=== PATIENT | male | born 1955 | race Caucasian/White ===

== ENCOUNTER 2021-06-25 17:25 | Inpatient (IN) | payer OTHER ==
[~2021-06-25] VITALS: Ht 185.4 cm; Wt 108.4 kg
[2021-06-25 20:17] LABS: Basophils # (auto) 0 10 ^3/uL (0-0.2); Basophils % (auto) 0.3 % (0.0-2.0); Eosinophils # (auto) 0 10 ^3/uL (0-0.8); Eosinophils % (auto) 0.1 % (0.0-7.0); Hematocrit 41.9 % (41.0-53.0); Hemoglobin 14.2 g/dL (13.5-17.5); Lymphocytes # (auto) 0.9 10 ^3/uL (0.4-5.4); Lymphocytes % (auto) 6.8 % (10.0-50.0); Mean Corpuscular Hemoglobin 30.7 pg (28.0-32.0); Mean Corpuscular Hgb Conc. 33.8 g/dL (32.0-36.0); Mean Corpuscular Volume 90.6 fL (80.0-100.0); Monocytes # (auto) 0.9 10 ^3/uL (0-1.3); Monocytes % (auto) 6.8 % (0.0-12.0); Nucleated Red Blood Cells % 0.2 %; Red Blood Cells 4.62 10^6/uL (4.5-5.90); Red Cell Distribution Width 15.2 % (11.8-14.3); White Blood Cell 12.8 10^3/uL (4.4-10.8)
[2021-06-25 20:25] LABS: INR 1.05 (0.9-1.15)
[2021-06-25 20:40] LABS: Lactic Acid w/Reflex 2.9 mmol/L (0.4-2.0)
[2021-06-25 20:54] LABS: Albumin 3.2 g/dL (3.4-5.0); BUN/Creatinine Ratio 23.5; Bilirubin, Total 1.4 mg/dL (0.2-1.0); Calcium 9.4 mg/dL (8.5-10.1); Total Protein 7.7 g/dL (6.4-8.2)
[2021-06-25 21:14] LABS: Magnesium 1.9 mg/dL (1.6-2.6)
[2021-06-25] MEDS ORDERED: SODIUM CHLORIDE 0.9% 1,000 ML IV ONE (22:00)
[2021-06-25] MEDS ORDERED: ASPirin 325 MG TAB PO ONE (22:00)
[2021-06-26] MEDS ORDERED: POTASSIUM CHL 20 Meq TABLET PO ONE (05:15)
[2021-06-26] MEDS ORDERED: ACETAMINOPHEN 325 MG TAB PO PRN (07:00)
[2021-06-26] MEDS ORDERED: NITROGLYCERIN 0.4 MG SL TAB SL PRN (07:00)
[2021-06-26] MEDS ORDERED: ONDANSETRON HCL 4 MG/2 ML VIAL IV PRN (07:00)
[2021-06-26] MEDS ORDERED: TEMAZEPAM 15 MG CAP PO PRN (07:00)
[2021-06-26] MEDS ORDERED: SODIUM CHLORIDE 0.9% 1,000 ML IV SCH (07:00)
[2021-06-26] MEDS ORDERED: MORPHINE SULFATE INJECTION 2 MG/ML SYRG IV PRN (07:00)
[2021-06-26 16:17] LABS: BUN/Creatinine Ratio 35.1; Calcium 8.7 mg/dL (8.5-10.1); Potassium 3.1 mmol/L (3.5-5.1)
[2021-06-26 17:01] LABS: Basophils # (auto) 0 10 ^3/uL (0-0.2); Basophils % (auto) 0.2 % (0.0-2.0); Eosinophils # (auto) 0.1 10 ^3/uL (0-0.8); Eosinophils % (auto) 1.5 % (0.0-7.0); Hemoglobin 13.4 g/dL (13.5-17.5); Lymphocytes # (auto) 1.2 10 ^3/uL (0.4-5.4); Lymphocytes % (auto) 12.4 % (10.0-50.0); Mean Corpuscular Hemoglobin 31.7 pg (28.0-32.0); Mean Corpuscular Hgb Conc. 34.5 g/dL (32.0-36.0); Mean Corpuscular Volume 91.9 fL (80.0-100.0); Monocytes # (auto) 0.7 10 ^3/uL (0-1.3); Monocytes % (auto) 7.4 % (0.0-12.0); Neutrophils # (auto) 7.8 10 ^3/uL (1.6-8.6); Neutrophils % (auto) 78.5 % (37.0-80.0); Nucleated Red Blood Cells % 0.1 %; Red Blood Cells 4.24 10^6/uL (4.5-5.90); Red Cell Distribution Width 15.7 % (11.8-14.3); White Blood Cell 9.9 10^3/uL (4.4-10.8)
[2021-06-26] MEDS: cefTRIAXone 1GM/50ML D5W 50 ML IV SCH (17:10)
[2021-06-26] MEDS: ENOXAPARIN SOD 40 MG/0.4 ML SYRINGE SC SCH (17:12)
[2021-06-26] MEDS: LISINOPRIL 5 MG TAB PO SCH (17:13)
[2021-06-26] MEDS: PANTOPRAZOLE 40 MG TAB PO SCH (17:13)
[2021-06-26] MEDS: METOPROLOL SUCCINATE XL 50 MG TAB PO SCH (17:13)
[2021-06-26] MEDS: ASPirin 81 mg TAB PO SCH (17:14)
[2021-06-26] MEDS: AZITHROMYCIN 500MG/ 250ML 250 ML IV SCH (19:10)
[2021-06-26] MEDS: SODIUM CHLORIDE 0.9% 1,000 ML IV SCH (20:10)
[2021-06-26] MEDS: ATORVASTATIN 20 MG TAB PO SCH (23:00)
[2021-06-27] MEDS: SODIUM CHLORIDE 0.9% 1,000 ML IV SCH ×3 (00:30→20:58)
[2021-06-27 03:40] VITALS: BP 125/80
[2021-06-27 04:27] LABS: Basophils # (auto) 0 10 ^3/uL (0-0.2); Basophils % (auto) 0.4 % (0.0-2.0); Eosinophils # (auto) 0.3 10 ^3/uL (0-0.8); Eosinophils % (auto) 3.6 % (0.0-7.0); Hemoglobin 12.9 g/dL (13.5-17.5); Lymphocytes # (auto) 1.6 10 ^3/uL (0.4-5.4); Lymphocytes % (auto) 19.1 % (10.0-50.0); Mean Corpuscular Hemoglobin 31.4 pg (28.0-32.0); Mean Corpuscular Hgb Conc. 34.1 g/dL (32.0-36.0); Mean Corpuscular Volume 92.2 fL (80.0-100.0); Monocytes # (auto) 0.9 10 ^3/uL (0-1.3); Monocytes % (auto) 10.3 % (0.0-12.0); Neutrophils # (auto) 5.7 10 ^3/uL (1.6-8.6); Neutrophils % (auto) 66.6 % (37.0-80.0); Nucleated Red Blood Cells % 0.1 %; Red Blood Cells 4.12 10^6/uL (4.5-5.90); Red Cell Distribution Width 15.6 % (11.8-14.3); White Blood Cell 8.5 10^3/uL (4.4-10.8)
[2021-06-27 04:41] LABS: Albumin 2.5 g/dL (3.4-5.0); Calcium 8.6 mg/dL (8.5-10.1)
[2021-06-27 04:45] LABS: BUN/Creatinine Ratio 41.5; Bilirubin, Total 0.6 mg/dL (0.2-1.0); Total Protein 6.3 g/dL (6.4-8.2)
[2021-06-27 05:00] VITALS: BP 125/80
[2021-06-27] MEDS ORDERED: LISI-706 PO (06:37)
[2021-06-27] MEDS ORDERED: SERT50TA19 PO (06:37)
[2021-06-27] MEDS ORDERED: METO25TA93 PO (06:37)
[2021-06-27] MEDS ORDERED: MELA3TAB27 PO (06:37)
[2021-06-27] MEDS ORDERED: DILT60TA PO (06:37)
[2021-06-27 09:00] VITALS: BP 133/80
[2021-06-27] MEDS: cefTRIAXone 1GM/50ML D5W 50 ML IV SCH (09:51)
[2021-06-27] MEDS: ENOXAPARIN SOD 40 MG/0.4 ML SYRINGE SC SCH (09:53)
[2021-06-27] MEDS: ASPirin 81 mg TAB PO SCH (09:53)
[2021-06-27] MEDS: PANTOPRAZOLE 40 MG TAB PO SCH (09:53)
[2021-06-27] MEDS: LISINOPRIL 5 MG TAB PO SCH (09:54)
[2021-06-27] MEDS: METOPROLOL SUCCINATE XL 50 MG TAB PO SCH (09:54)
[2021-06-27] MEDS: AZITHROMYCIN 500MG/ 250ML 250 ML IV SCH (09:55)
[2021-06-27] MEDS ORDERED: FOLIC ACID 1 MG, MULTIPLE VITAMIN 10 ML, MAGNESIUM SULF SDV 50% 8 MEQ, THIAMINE INJ 100... INJ SCH ×5 (12:00)
[2021-06-27 13:00] VITALS: BP 133/74
[2021-06-27 16:47] VITALS: BP 121/70
[2021-06-27] MEDS: ATORVASTATIN 20 MG TAB PO SCH (20:59)
[2021-06-27 22:00] VITALS: BP 94/49
[2021-06-27] MEDS ORDERED: LORazepam 2MG/ML-1ML VIAL IV PRN (23:15)
[2021-06-28 05:00] VITALS: BP 103/65
[2021-06-28] MEDS: SODIUM CHLORIDE 0.9% 1,000 ML IV SCH ×2 (05:37→17:14)
[2021-06-28 05:57] LABS: Lymphocytes % (auto) 26.4 % (10.0-50.0); Monocytes % (auto) 17.3 % (0.0-12.0); Neutrophils % (auto) 49.6 % (37.0-80.0); White Blood Cell 6.3 10^3/uL (4.4-10.8)
[2021-06-28 05:58] LABS: Basophils # (auto) 0 10 ^3/uL (0-0.2); Basophils % (auto) 0.5 % (0.0-2.0); Eosinophils # (auto) 0.4 10 ^3/uL (0-0.8); Eosinophils % (auto) 6.2 % (0.0-7.0); Hematocrit 37.8 % (41.0-53.0); Hemoglobin 12.9 g/dL (13.5-17.5); Lymphocytes # (auto) 1.7 10 ^3/uL (0.4-5.4); Mean Corpuscular Hemoglobin 31.8 pg (28.0-32.0); Mean Corpuscular Volume 93.4 fL (80.0-100.0); Monocytes # (auto) 1.1 10 ^3/uL (0-1.3); Neutrophils # (auto) 3.1 10 ^3/uL (1.6-8.6); Red Blood Cells 4.05 10^6/uL (4.5-5.90); Red Cell Distribution Width 15.8 % (11.8-14.3)
[2021-06-28 06:25] LABS: Potassium 3.7 mmol/L (3.5-5.1)
[2021-06-28 06:28] LABS: BUN/Creatinine Ratio 42.1; Calcium 8.6 mg/dL (8.5-10.1)
[2021-06-28] MEDS: ADENOSINE 90 MG in GIVE UN-DILUTED 0 ML IV STA (07:47)
[2021-06-28 09:00] VITALS: BP 94/54
[2021-06-28] MEDS: cefTRIAXone 1GM/50ML D5W 50 ML IV SCH (09:27)
[2021-06-28] MEDS: TOPIRAMATE 25 MG TAB PO SCH (09:28)
[2021-06-28] MEDS: PANTOPRAZOLE 40 MG TAB PO SCH (09:29)
[2021-06-28] MEDS: FOLIC ACID 1 MG TAB PO SCH (09:29)
[2021-06-28] MEDS: ASPirin 81 mg TAB PO SCH (09:29)
[2021-06-28] MEDS: THIAMINE HCL 100 MG TAB PO SCH (09:29)
[2021-06-28] MEDS: ENOXAPARIN SOD 40 MG/0.4 ML SYRINGE SC SCH (09:30)
[2021-06-28] MEDS: LISINOPRIL 5 MG TAB PO SCH (09:30)
[2021-06-28 09:57] LABS: Urine Bacteria NONE SEEN /hpf (None Seen); Urine Blood Negative /uL (Negative); Urine Hyaline Cast FEW /lpf (0 - 2); Urine Specific Gravity 1.012 (1.001-1.035); Urine WBC 1 /hpf (0 - 3)
[2021-06-28] MEDS: METOPROLOL SUCCINATE XL 50 MG TAB PO SCH (10:00)
[2021-06-28 10:06] LABS: Alcohol, Urine < 3.0 mg/dL (0-10); Amphetamine Screen, Urine NEGATIVE (NEGATIVE); Barbiturate Scree,Urine NEGATIVE (NEGATIVE); Benzodiazephine Screen, Urine NEGATIVE (NEGATIVE); Cannabinoid Screen, Urine NEGATIVE (NEGATIVE); Cocaine Screen, Urine NEGATIVE (NEGATIVE); Opiate Scree,Urine NEGATIVE (NEGATIVE); Phencyclidine Screen, Urine NEGATIVE (NEGATIVE)
[2021-06-28] MEDS: AZITHROMYCIN 500MG/ 250ML 250 ML IV SCH (11:45)
[2021-06-28 13:00] VITALS: BP 123/81
[2021-06-28 17:00] VITALS: BP 123/82
[2021-06-28] MEDS: ATORVASTATIN 20 MG TAB PO SCH (21:56)
[2021-06-28 22:00] VITALS: BP 137/76
[2021-06-28] MEDS ORDERED: LORazepam 2MG/ML-1ML VIAL IV PRN (23:30)
[2021-06-29] MEDS: SODIUM CHLORIDE 0.9% 1,000 ML IV SCH ×2 (03:30→12:30)
[2021-06-29 05:00] VITALS: BP 115/57
[2021-06-29 06:32] LABS: Hematocrit 35.9 % (41.0-53.0); Hemoglobin 12.4 g/dL (13.5-17.5); Mean Corpuscular Hgb Conc. 34.6 g/dL (32.0-36.0); Mean Corpuscular Volume 92.7 fL (80.0-100.0); Red Blood Cells 3.88 10^6/uL (4.5-5.90); Red Cell Distribution Width 16.1 % (11.8-14.3); White Blood Cell 6.5 10^3/uL (4.4-10.8)
[2021-06-29 06:39] LABS: BUN/Creatinine Ratio 25.4; Calcium 8.7 mg/dL (8.5-10.1); Potassium 3.3 mmol/L (3.5-5.1)
[2021-06-29 06:43] LABS: Band Neutrophils % (manual) 0; Basophils % (manual) 0 (0.0-2.0); Blast Cells 0; Metamyelocytes % 0; Promyelocytes % 0; Reactive Lymphocytes 0
[2021-06-29 07:16] LABS: Eosinophils % (manual) 4 (0-7); Lymphocytes % (manual) 30 (10.0-50.0); Monocytes % (manual) 23 (0-12); Myelocytes % 1
[2021-06-29] MEDS ORDERED: IOHEXOL 350 MG/ML 100ML IJ ONE (08:25)
[2021-06-29] MEDS: ADENOSINE 90 MG in GIVE UN-DILUTED 0 ML IV STA (09:39)
[2021-06-29 09:45] VITALS: BP 136/88
[2021-06-29] MEDS: FOLIC ACID 1 MG TAB PO SCH (11:26)
[2021-06-29] MEDS: SERTRALINE HCL 50 MG TAB PO SCH ×2 (11:26)
[2021-06-29] MEDS: TOPIRAMATE 25 MG TAB PO SCH (11:26)
[2021-06-29] MEDS: ASPirin 81 mg TAB PO SCH (11:26)
[2021-06-29] MEDS: ENOXAPARIN SOD 40 MG/0.4 ML SYRINGE SC SCH (11:26)
[2021-06-29] MEDS: LISINOPRIL 5 MG TAB PO SCH (11:27)
[2021-06-29] MEDS: PANTOPRAZOLE 40 MG TAB PO SCH (11:27)
[2021-06-29] MEDS: THIAMINE HCL 100 MG TAB PO SCH (11:28)
[2021-06-29] MEDS: METOPROLOL SUCCINATE XL 50 MG TAB PO SCH (11:28)
[2021-06-29] MEDS: cefTRIAXone 1GM/50ML D5W 50 ML IV SCH (11:28)
[2021-06-29 13:00] VITALS: BP 116/94
[2021-06-29] MEDS: AZITHROMYCIN 500MG/ 250ML 250 ML IV SCH (13:46)
[2021-06-29] MEDS ORDERED: ENOXAPARIN SOD 60 MG/0.6 ML SYRINGE SC ONE (14:30)
[2021-06-29 16:47] VITALS: BP 109/67
[2021-06-29 18:29] VITALS: BP 109/67
[2021-06-29] MEDS ORDERED: ENOXAPARIN SOD 100 MG/1 ML SYRINGE SC SCH (22:00)
== END 2021-06-29 22:15 | DRG 280 ==
LOC: ER 17:25 → TELE 06-26 06:52 → TELE-WESTW 06-27 03:38
PROVIDERS: ADMIT Nurse Practitioner; ATTEND Internal Medicine
DX: I21.4 Non-ST elevation (NSTEMI) myocardial infarction (principal); J18.9 Pneumonia, unspecified organism; I26.99 Other pulmonary embolism without acute cor pulmonale; G93.41 Metabolic encephalopathy; M62.82 Rhabdomyolysis; E44.0 Moderate protein-calorie malnutrition; E87.4 Mixed disorder of acid-base balance; F10.231 Alcohol dependence with withdrawal delirium; J44.0 Chronic obstructive pulmonary disease with (acute) lower respiratory infection; E86.0 Dehydration; R62.7 Adult failure to thrive; I10 Essential (primary) hypertension; Z68.31 Body mass index [BMI] 31.0-31.9, adult; E87.6 Hypokalemia; F17.210 Nicotine dependence, cigarettes, uncomplicated; F32.9 Major depressive disorder, single episode, unspecified; Z79.899 Other long term (current) drug therapy; Z82.49 Family history of ischemic heart disease and other diseases of the circulatory system; Z83.3 Family history of diabetes mellitus
CPT/HCPCS: 36415; 70450; 70551; 71045; 71275; 72141; 72146; 78452; 80048; 80053; 80307; 80320; 81001; 82550; 83036; 83605; 83735; 83880; 84484; 85007; 85025; 85027; 85379; 85610; 87040; 87426; 93005; 93017; 93306; 93970; 95819; 96360; 97110; 97163; 97530; G0378; J0153; J0696